=== PATIENT | female | born 1955 | race Caucasian/White ===

== ENCOUNTER 2016-12-20 07:28 | Day surgery (SDC) | payer OTHER ==
[~2016-12-20] VITALS: Ht 162.6 cm; Wt 87.9 kg
[2016-12-20] MEDS ORDERED: LISI20TA11 PO (08:20)
[2016-12-20] MEDS ORDERED: SIMV5TAB50 PO (08:20)
[2016-12-20 08:23] VITALS: Ht 162.6 cm; Wt 87.9 kg
[2016-12-20 09:06] VITALS: BP 126/64; PULSE 65; RESP 16
--- NOTE | 2016-12-20 10:48 | GILP ---
DATE OF PROCEDURE: 12/20/2016 NAME OF PROCEDURE: Esophagogastroduodenoscopy and biopsy. SURGEON: Peyton Broussard MD PREOPERATIVE DIAGNOSIS: Gastroesophageal reflux disease with chronic cough. POSTOPERATIVE DIAGNOSES: 1. Gastroesophageal reflux disease. 2. Gastritis with erosions. 3. Gastric mucosal biopsies were taken for Helicobacter pylori test. INDICATION FOR THE PROCEDURE: Ms. Priscilla Saldana is a 61-year-old female patient who had pr manager damion heartburn associated with chronic coughing. Symptomatic medical therapy was not helping her. S o, the patient was scheduled for endoscopic examination for further evaluation. The procedure and possible complications are well explained to the patient. The patient understood and consented to the procedure. DESCRIPTION OF PROCEDURE: Under the influence of anesthesia, the gastroscope was carefully introduc ed into the esophagus and under direct vision, it was advanced to the stomach and through the pyloru s into the duodenal bulb and descending duodenum. FINDINGS: ESOPHAGUS: The patient had gastroesophageal reflux disease. There was no esophagitis or ulceration . STOMACH: She had gastritis with erosions. Gastric mucosal biopsies were taken for H. pylori test. DUODENUM: Normal. She tolerated the procedure very well and there was no complication from the procedure. At the end of the procedure, she was awake with stable vital signs and she was discharged home to the care of h er family. IMPRESSION: 1. Gastroesophageal reflux disease. 2. Gastritis with erosions. 3. Gastric mucosal biopsies were taken for Helicobacter pylori test. PLAN: 1. Omeprazole 40 mg p.o. q.a.m. 2. Zantac 300 mg p.o. at bedtime. 3. Await H. pylori test report. Dictated By: PEYTON BROUSSARD MD GD/NTS Conf#: [id number] DID#: [id number] CC: PEYTON BROUSSARD MD;*EndCC*
[2016-12-20 10:56] VITALS: BP 127/63; RESP 20
[2016-12-20] MEDS ORDERED: PROPOFOL 40 ML ONE (11:09)
--- NOTE | 2016-12-23 13:37 | CONS ---
DATE OF ADMISSION: 12/20/2016 DATE OF CONSULTATION: TYPE OF CONSULTATION: Preoperative gastroenterology I thank you very much for this kind referral. HISTORY OF PRESENT ILLNESS: Ms. Priscilla Mota is a 61-year-old female patient, who has been referred to me for further evaluation of gastroesophageal reflux disease associated with coughing. There is no past history of peptic ulcer disease. She is not taking any nonsteroidal antiinflammato ry agents. Her appetite has been good, and she is not losing any weight. There is no history of ga llstones. She does not have any fever, chills, or jaundice. There is no history of liver disease. Patient denies any change in the bowel habit or rectal bleeding. There is no past history of colon neoplasm. She states that she had a colonoscopy 3 years ago and no colon neoplasm was identified. She is hypertensive. She is not a diabetic. She does not have any heart disease or lung problem. There is no history of kidney disease. She has hyperlipidemia. SOCIAL HISTORY: She is a nonsmoker. She does not abuse alcohol. FAMILY HISTORY: Negative for gastrointestinal tract neoplasm. ALLERGIES: THERE IS NO HISTORY OF SIGNIFICANT DRUG ALLERGY. MEDICATIONS: Lisinopril, simvastatin. PHYSICAL EXAMINATION GENERAL: She is 5 feet 1 inch tall and she weighs 185 pounds. HEART: Examination of the heart reveals normal first and second heart sounds. LUNGS: Clear. ABDOMEN: Soft without any distention. Liver and spleen are not palpable. There are no masses. Th ere is no focal tenderness. Normal bowel sounds are heard. CENTRAL NERVOUS SYSTEM: Does not reveal any focal neurological deficit. IMPRESSION: 1. Gastroesophageal reflux disease associated with the coughing, not responding to therapy. 2. Hypertension. 3. Hyperlipidemia. 4. Obesity. PLAN: 1. Omeprazole 40 mg p.o. q.a.m. 2. Endoscopic examination for further evaluation. 3. Because of the obesity with a short thick neck, she needs monitored anesthesia care for the proc edure. The procedure and possible complications are well explained to the patient. She understands and con sents to the procedure. I thank you once again, with warmest personal regards, Dictated By: PEYTON RIOS/GILDA Conf#: [id number] DID#: [id number]
== END 2016-12-20 11:08 | disposition home or self-care (01) ==
LOC: GIL 07:28
PROVIDERS: ATTEND Internal Medicine Gastroenterology
DX: K21.9 Gastro-esophageal reflux disease without esophagitis (principal); K29.70 Gastritis, unspecified, without bleeding; I10 Essential (primary) hypertension; E78.5 Hyperlipidemia, unspecified; E66.9 Obesity, unspecified; Z68.33 Body mass index [BMI] 33.0-33.9, adult
CPT/HCPCS: 87081

== ENCOUNTER → 2017-07-23 | Outpatient (CLI) | END | disposition home or self-care (01) ==